=== PATIENT | female | born 1960 | race Caucasian/White ===

== ENCOUNTER 2016-04-11 10:24 | Inpatient (IN) | payer MEDICAID, OTHER ==
[~2016-04-11] VITALS: Ht 162.6 cm; Wt 45.8 kg
[~2016-04-11 10:24] MED LIST: ALBU2.5V13 NEB; ASPI81TA2 PO; Ipratropium Bromide NEB; LEVO750T21 PO
[2016-04-11] MEDS ORDERED: ONDANSETRON HCL/PF 4 MG/2 ML VIAL ONE (10:46)
[2016-04-11] MEDS ORDERED: IV NS 0.9% 1,000 ML ONE (10:46)
[2016-04-11] MEDS ORDERED: IV SET PRIMARY PUMP SET 1 EA INFUS.SET MC ONE ×3 (10:46→20:14)
[2016-04-11] MEDS ORDERED: FAMOTIDINE/PF INJ 20 MG/2 ML VIAL IV ONE ×2 (10:46→11:00)
[2016-04-11] MEDS ORDERED: HYDROMORPHONE 1 MG/1 ML DISP.SYRIN ONE (10:47)
[2016-04-11 10:50] LABS: BASOPHILS # (AUTO) 0.2 /CMM (0.0-0.2); BASOPHILS % (AUTO) 1.4 % (0.0-2.0); DIFF TOTAL % 100 %; EOSINOPHILS # (AUTO) 0.2 /CMM (0.0-0.7); EOSINOPHILS % (AUTO) 0.9 % (0.0-6.0); HEMATOCRIT 30 % (33-45); HEMOGLOBIN 9.7 g/dL (11.5-14.8); LYMPHOCYTES # (AUTO) 1.2 /CMM (0.8-4.8); MEAN CORPUSCULAR HEMOGLOBIN 25 PG (26.0-33.0); MEAN CORPUSCULAR HGB CONC 32 g/dl (31.0-36.0); MEAN CORPUSCULAR VOLUME 76 fL (82-100); MONOCYTES # (AUTO) 1.3 /CMM (0.1-1.30); MONOCYTES % (AUTO) 7.5 % (2.0-12.0); NEUTROPHILS % (AUTO) 83.2 % (43.0-81.0); PLATELET COUNT (AUTO) 627 /CMM (150-450); RED BLOOD CELL COUNT(AUTO) 3.96 MIL/uL (4.0-5.2); WHITE BLOOD COUNT (AUTO) 16.9 K/uL (4.3-11.0)
[2016-04-11 10:57] LABS: CALCIUM, SERUM 8.3 mg/dL (8.5-10.1); CREATININE 0.7 mg/dL (0.6-1.3); POTASSIUM 3.7 mmol/L (3.5-5.1)
[2016-04-11] MEDS ORDERED: HYDROMORPHONE 1 MG/1 ML DISP.SYRIN IV ONE (11:00)
[2016-04-11] MEDS ORDERED: ONDANSETRON HCL/PF 4 MG/2 ML VIAL IV ONE (11:00)
[2016-04-11] MEDS ORDERED: IV NS 0.9% 1,000 ML BAG IV ONE ×2 (11:00→12:30)
[2016-04-11 11:03] LABS: ALBUMIN 1.9 g/dL (3.4-5.0); BILIRUBIN,DIRECT 0.2 mg/dL (0.0-0.2); BILIRUBIN,TOTAL 0.5 mg/dL (0.2-1.0); INDIRECT BILIRUBIN 0.3 mg/dL (0.0-1.1); TOTAL PROTEIN, SERUM 6.8 g/dL (6.4-8.2)
[2016-04-11 11:37] LABS: ANISOCYTOSIS 1+; BAND % (MANUAL) 2 % (0.0-5.0); EOSINOPHILS % (MANUAL) 1 % (0-4); LYMPHOCYTES % (MANUAL) 7 % (16-48); PLATELET ESTIMATE INCREASED
[2016-04-11 11:38] LABS: HYPOCHROMASIA 1+; MICROCYTOSIS 1+
[2016-04-11] MEDS ORDERED: IV NS 0.9% 2,000 ML ONE (12:23)
[2016-04-11] MEDS ORDERED: IV SET PRIMARY 1 EA INFUS.SET MC ONE (12:23)
[2016-04-11 12:28] LABS: KETONES,URINE 15 (NEGATIVE); LEUKOCYTE ESTERASE ,URINE Negative (NEGATIVE); PH,URINE 5.5 (5.0-8.0)
[2016-04-11 12:29] LABS: ADD UA MICROSCOPIC YES
[2016-04-11] MEDS ORDERED: VANCOMYCIN 1 GM in IV D5W 250 ML IV ONE (12:30)
[2016-04-11] MEDS ORDERED: PIPERACILLIN /TAZOBACTAM 3.375 G in IV D5W 50 ML IV ONE (12:30)
[2016-04-11 12:38] LABS: ADD URINE CULTURE NO; WBC,URINE NONE SEEN /HPF (0-3)
[2016-04-11] MEDS ORDERED: HYDR-552 PO (12:50)
[2016-04-11 13:05] LABS: INR 1.1 (0.87-1.13); PROTHROMBIN TIME 11.6 SECS (9.5-12.7)
[2016-04-11 13:15] LABS: ALANINE AMINOTRANSFERASE 61 U/L (12-78); ALBUMIN 1.7 g/dL (3.4-5.0); ASPARTATE AMINOTRANSFERASE 67 U/L (15-37); BILIRUBIN,DIRECT 0.1 mg/dL (0.0-0.2); BILIRUBIN,TOTAL 0.4 mg/dL (0.2-1.0); INDIRECT BILIRUBIN 0.3 mg/dL (0.0-1.1); TOTAL PROTEIN, SERUM 6.3 g/dL (6.4-8.2)
[2016-04-11 13:18] LABS: LACTIC ACID 1.1 mmol/L (0.4-2.0)
[2016-04-11 13:20] LABS: TROPONIN I < 0.017 ng/mL (0.00-0.056)
[2016-04-11 14:10] VITALS: BP 88/55
[2016-04-11] MEDS ORDERED: ALBUTEROL FS 2.5 MG/0.5 ML VIAL.NEB NEB PRN (15:00)
[2016-04-11] MEDS ORDERED: Z GUARD REMEDY 2 OZ OINT TP PRN (15:30)
[2016-04-11] MEDS ORDERED: ACETAMINOPHEN 325 MG TABLET PO PRN (15:30)
[2016-04-11] MEDS ORDERED: MAGNESIUM HYDROXIDE 30 ML UDC PO PRN (15:30)
[2016-04-11] MEDS ORDERED: MAG HYDROX/AL HYDROX/SIMETH 30 ML UDC PO PRN (15:30)
[2016-04-11] MEDS ORDERED: ZOLPIDEM TARTRATE 5 MG TABLET PO PRN (15:30)
[2016-04-11] MEDS ORDERED: HYDROCODONE/APAP 5/325MG 1 EACH TABLET PO PRN (15:30)
[2016-04-11 16:00] VITALS: BP_SYST 88; BP_SYST 99; BP_DIAS 55; BP_DIAS 58
[2016-04-11] MEDS: IPRATROPIUM NEB FS 0.5 MG/2.5 ML AMPUL.NEB NEB SCH ×2 (16:20→19:46)
[2016-04-11] MEDS: PANTOPRAZOLE 40 MG TABLET.DR PO SCH (16:32)
[2016-04-11] MEDS: ASPIRIN 81 MG TAB.CHEW PO SCH (16:32)
[2016-04-11] MEDS: HYDROCODONE/APAP 5/325MG 1 EACH TABLET PO PRN (17:31)
[2016-04-11 20:00] VITALS: BP 94/50
[2016-04-11] MEDS: IV D5/0.45 NACL 1,000 ML IV PRN (20:38)
[2016-04-11] MEDS: ENOXAPARIN SODIUM 40 MG/0.4 ML DISP.SYRIN SQ SCH (20:48)
[2016-04-12] MEDS: IPRATROPIUM NEB FS 0.5 MG/2.5 ML AMPUL.NEB NEB SCH ×4 (01:16→20:03)
[2016-04-12] MEDS: HYDROCODONE/APAP 5/325MG 1 EACH TABLET PO PRN ×5 (01:20→22:23)
[2016-04-12 07:07] LABS: ALBUMIN 1.6 g/dL (3.4-5.0); BILIRUBIN,TOTAL 0.3 mg/dL (0.2-1.0); CALCIUM, SERUM 8.1 mg/dL (8.5-10.1); CREATININE 0.6 mg/dL (0.6-1.3); PHOSPHORUS 3.3 mg/dL (2.5-4.9); POTASSIUM 3.9 mmol/L (3.5-5.1); TOTAL PROTEIN, SERUM 5.8 g/dL (6.4-8.2)
[2016-04-12 07:12] LABS: BASOPHILS # (AUTO) 0.1 /CMM (0.0-0.2); BASOPHILS % (AUTO) 0.5 % (0.0-2.0); DIFF TOTAL % 100 %; EOSINOPHILS # (AUTO) 0.1 /CMM (0.0-0.7); EOSINOPHILS % (AUTO) 0.7 % (0.0-6.0); HEMATOCRIT 26 % (33-45); HEMOGLOBIN 8.4 g/dL (11.5-14.8); LYMPHOCYTES # (AUTO) 1.6 /CMM (0.8-4.8); LYMPHOCYTES % (AUTO) 11.1 % (20.0-44.0); MEAN CORPUSCULAR HEMOGLOBIN 25 PG (26.0-33.0); MEAN CORPUSCULAR HGB CONC 32 g/dl (31.0-36.0); MEAN CORPUSCULAR VOLUME 76 fL (82-100); MONOCYTES # (AUTO) 1.4 /CMM (0.1-1.30); MONOCYTES % (AUTO) 9.2 % (2.0-12.0); NEUTROPHILS # (AUTO) 11.7 /CMM (1.8-8.9); NEUTROPHILS % (AUTO) 78.5 % (43.0-81.0); PLATELET COUNT (AUTO) 593 /CMM (150-450); RED BLOOD CELL COUNT(AUTO) 3.43 MIL/uL (4.0-5.2); WHITE BLOOD COUNT (AUTO) 14.9 K/uL (4.3-11.0)
[2016-04-12 08:00] VITALS: BP 95/50
[2016-04-12] MEDS: ASPIRIN 81 MG TAB.CHEW PO SCH (08:22)
[2016-04-12] MEDS: PANTOPRAZOLE 40 MG TABLET.DR PO SCH (08:22)
[2016-04-12] MEDS ORDERED: PIPERACILLIN /TAZOBACTAM 4.5 G in IV D5W 50 ML IV SCH (09:00)
[2016-04-12] MEDS ORDERED: FEE PK DOSING 1 MIN EA MC ONE (09:12)
[2016-04-12] MEDS ORDERED: SECONDARY IV SET 1 EA INFUS.SET MC ONE ×3 (10:41→13:58)
[2016-04-12] MEDS: VANCOMYCIN 0.75 GM in IV D5W 250 ML IV SCH ×2 (10:50→22:27)
[2016-04-12] MEDS: PIPERACILLIN /TAZOBACTAM 3.375 G in IV D5W 50 ML IV SCH ×2 (13:29→17:00)
[2016-04-12] MEDS: SOD FERRIC GLUC 125 MG in IV NS 0.9% 100 ML IV SCH (14:03)
[2016-04-12 16:00] VITALS: BP 90/50
[2016-04-12] MEDS: IV D5/0.45 NACL 1,000 ML IV PRN (18:11)
[2016-04-12 20:00] VITALS: BP_SYST 110; BP_SYST 91; BP_DIAS 51; BP_DIAS 83
[2016-04-12] MEDS: ENOXAPARIN SODIUM 40 MG/0.4 ML DISP.SYRIN SQ SCH (21:00)
[2016-04-13] MEDS: PIPERACILLIN /TAZOBACTAM 3.375 G in IV D5W 50 ML IV SCH ×4 (01:02→18:26)
[2016-04-13] MEDS: IPRATROPIUM NEB FS 0.5 MG/2.5 ML AMPUL.NEB NEB SCH ×4 (01:40→19:40)
[2016-04-13] MEDS: MORPHINE SULFATE INJ 2 MG/ML DISP.SYRIN IV PRN ×2 (02:23→06:41)
[2016-04-13 04:00] VITALS: BP 115/73
[2016-04-13] MEDS: IV D5/0.45 NACL 1,000 ML IV PRN (05:50)
[2016-04-13] MEDS: PANTOPRAZOLE 40 MG TABLET.DR PO SCH (07:30)
[2016-04-13 08:00] VITALS: BP 101/54
[2016-04-13] MEDS: ASPIRIN 81 MG TAB.CHEW PO SCH (08:18)
[2016-04-13] MEDS ORDERED: KETOROLAC TROMETHAMINE INJ 30 MG/ML VIAL IM PRN (09:00)
[2016-04-13] MEDS: KETOROLAC TROMETHAMINE INJ 30 MG/ML VIAL IV PRN ×2 (09:16→20:31)
[2016-04-13] MEDS: ONDANSETRON HCL/PF 4 MG/2 ML VIAL IVP PRN ×2 (09:17→16:34)
[2016-04-13 10:36] LABS: CALCIUM, SERUM 8.1 mg/dL (8.5-10.1)
[2016-04-13] MEDS ORDERED: POTASSIUM CHLORIDE 20 MEQ TAB.PRT.SR PO ONE (12:00)
[2016-04-13] MEDS: VANCOMYCIN 0.75 GM in IV D5W 250 ML IV SCH ×2 (12:03→21:24)
[2016-04-13 15:22] LABS: APPEARANCE,UNSPUN,BODY FLUID CLEAR (CLEAR)
[2016-04-13 15:23] LABS: COLOR,BODY FLUID YELLOW (LT YELLOW); RBC, BODY FLUID 4000 /cu. mm. (0-2000); WBC, BODY FLUID 1130 /cu. mm. (0-200)
[2016-04-13 16:00] VITALS: BP 85/46
[2016-04-13] MEDS: SOD FERRIC GLUC 125 MG in IV NS 0.9% 100 ML IV SCH (16:20)
[2016-04-13 16:57] LABS: POLYNUCLEAR, BODY FLUID 48 % (0-25)
[2016-04-13 20:00] VITALS: BP 92/56
[2016-04-13] MEDS: ENOXAPARIN SODIUM 40 MG/0.4 ML DISP.SYRIN SQ SCH (21:25)
[2016-04-13] MEDS ORDERED: ENOXAPARIN SODIUM 30 MG/0.3 ML DISP.SYRIN ONE (23:48)
[2016-04-14] MEDS: PIPERACILLIN /TAZOBACTAM 3.375 G in IV D5W 50 ML IV SCH ×3 (00:16→12:25)
[2016-04-14] MEDS: IPRATROPIUM NEB FS 0.5 MG/2.5 ML AMPUL.NEB NEB SCH ×3 (01:35→14:04)
[2016-04-14] MEDS: IV D5/0.45 NACL 1,000 ML IV PRN (06:05)
[2016-04-14 06:48] LABS: CALCIUM, SERUM 7.7 mg/dL (8.5-10.1); CREATININE 1.3 mg/dL (0.6-1.3); POTASSIUM 2.9 mmol/L (3.5-5.1)
[2016-04-14] MEDS: KETOROLAC TROMETHAMINE INJ 30 MG/ML VIAL IV PRN (07:43)
[2016-04-14 08:00] VITALS: BP 102/56
[2016-04-14] MEDS: ASPIRIN 81 MG TAB.CHEW PO SCH (08:59)
[2016-04-14] MEDS: PANTOPRAZOLE 40 MG TABLET.DR PO SCH (08:59)
[2016-04-14] MEDS: VANCOMYCIN 0.75 GM in IV D5W 250 ML IV SCH (09:57)
[2016-04-14] MEDS ORDERED: POTASSIUM CHLORIDE 20 MEQ TAB.PRT.SR PO ONE (10:00)
[2016-04-14] MEDS: ONDANSETRON HCL/PF 4 MG/2 ML VIAL IVP PRN (12:33)
[2016-04-14] MEDS: HYDROCODONE/APAP 5/325MG 1 EACH TABLET PO PRN (12:34)
[2016-04-14] MEDS: SOD FERRIC GLUC 125 MG in IV NS 0.9% 100 ML IV SCH (14:00)
[2016-04-14 15:37] VITALS: BP 108/58
[2016-04-14] MEDS ORDERED: VANCOMYCIN 500 MG in IV D5W 100 ML IV SCH (22:00)
== END 2016-04-14 15:30 | disposition home or self-care (01) | DRG 137 ==
LOC: ER 10:25 → MED 12:49
PROVIDERS: ADMIT Internal Medicine; ATTEND Internal Medicine
DX: J15.6 Pneumonia due to other Gram-negative bacteria (principal); J96.01 Acute respiratory failure with hypoxia; E43 Unspecified severe protein-calorie malnutrition; C74.90 Malignant neoplasm of unspecified part of unspecified adrenal gland; C34.90 Malignant neoplasm of unspecified part of unspecified bronchus or lung; J90 Pleural effusion, not elsewhere classified; E86.0 Dehydration; E87.1 Hypo-osmolality and hyponatremia; D50.9 Iron deficiency anemia, unspecified; Z72.0 Tobacco use; E27.9 Disorder of adrenal gland, unspecified
CPT/HCPCS: 36415; 71010-TC; 76942-TC; 80048-TC; 80053-TC; 80061-TC; 80076-TC; 80202-TC; 81000-TC; 83605-TC; 83690-TC; 83735-TC; 84100-TC; 84484-TC; 85025-TC; 85730-TC; 87040-TC; 87070-TC; 87081-TC; 88305-TC; 88312-TC; 88342; 89051-TC; 93970-TC; 94799-TC; A4606; J1170; J1650; J1885; J2270; J2405; J2543; J2916; J3370; J3490; J7030; J7060; Z7610

== ENCOUNTER 2016-04-19 02:07 | Inpatient (IN) | payer MEDICAID ==
[~2016-04-19] VITALS: Ht 162.6 cm; Wt 51.7 kg
[2016-04-19] VITALS (12 sets, daily range): BP systolic 94–119; BP diastolic 42–67
[~2016-04-19 02:07] MED LIST changes: +HYDR-552 PO
[2016-04-19] MEDS ORDERED: IV SET PRIMARY 1 EA INFUS.SET MC ONE (02:24)
[2016-04-19] MEDS ORDERED: MORPHINE SULFATE INJ 2 MG/ML DISP.SYRIN ONE ×2 (02:24→03:12)
[2016-04-19] MEDS ORDERED: IV NS 0.9% 1,000 ML ONE (02:24)
[2016-04-19] MEDS ORDERED: ONDANSETRON HCL/PF 4 MG/2 ML VIAL ONE (02:25)
[2016-04-19] MEDS ORDERED: MORPHINE SULFATE INJ 2 MG/ML DISP.SYRIN IV ONE ×2 (02:30→03:30)
[2016-04-19] MEDS ORDERED: ONDANSETRON HCL/PF 4 MG/2 ML VIAL IVP ONE (02:30)
[2016-04-19] MEDS ORDERED: IV NS 0.9% 1,000 ML BAG IV ONE (02:30)
[2016-04-19 02:45] LABS: BASOPHILS # (AUTO) 0.1 /CMM (0.0-0.2); BASOPHILS % (AUTO) 0.3 % (0.0-2.0); DIFF TOTAL % 100 %; EOSINOPHILS # (AUTO) 0.2 /CMM (0.0-0.7); EOSINOPHILS % (AUTO) 0.7 % (0.0-6.0); HEMATOCRIT 31 % (33-45); HEMOGLOBIN 9.8 g/dL (11.5-14.8); LYMPHOCYTES # (AUTO) 1.8 /CMM (0.8-4.8); LYMPHOCYTES % (AUTO) 7.5 % (20.0-44.0); MEAN CORPUSCULAR HEMOGLOBIN 24 PG (26.0-33.0); MEAN CORPUSCULAR HGB CONC 32 g/dl (31.0-36.0); MEAN CORPUSCULAR VOLUME 76 fL (82-100); MONOCYTES # (AUTO) 1.3 /CMM (0.1-1.30); MONOCYTES % (AUTO) 5.4 % (2.0-12.0); NEUTROPHILS # (AUTO) 20.8 /CMM (1.8-8.9); NEUTROPHILS % (AUTO) 86.1 % (43.0-81.0); PLATELET COUNT (AUTO) 620 /CMM (150-450); RED BLOOD CELL COUNT(AUTO) 4.08 MIL/uL (4.0-5.2); WHITE BLOOD COUNT (AUTO) 24.2 K/uL (4.3-11.0)
[2016-04-19 03:05] LABS: ANION GAP 17 (5-14); CALCIUM, SERUM 8.8 mg/dL (8.5-10.1); CARBON DIOXIDE 24 mmol/L (21-32); CHLORIDE 93 mmol/L (98-107); CREATININE 1.3 mg/dL (0.6-1.3); GFR 42 mL/min (>60); GLUCOSE 122 mg/dL (74-106); POTASSIUM 3.8 mmol/L (3.5-5.1); SODIUM SERUM 130 mmol/L (136-145); UREA NITROGEN, BLOOD 9 mg/dL (7-18)
[2016-04-19 03:06] LABS: INR 1.07 (0.87-1.13); PROTHROMBIN TIME 11.6 SECS (9.5-12.7)
[2016-04-19 03:11] LABS: ALANINE AMINOTRANSFERASE 32 U/L (12-78); ASPARTATE AMINOTRANSFERASE 39 U/L (15-37); BILIRUBIN,DIRECT 0.2 mg/dL (0.0-0.2); BILIRUBIN,TOTAL 0.6 mg/dL (0.2-1.0); INDIRECT BILIRUBIN 0.4 mg/dL (0.0-1.1); TOTAL PROTEIN, SERUM 7.7 g/dL (6.4-8.2)
[2016-04-19 03:13] LABS: TROPONIN I < 0.017 ng/mL (0.00-0.056)
[2016-04-19] MEDS ORDERED: HYDR-552 PO (03:21)
[2016-04-19] MEDS ORDERED: DOCU-25 PO (03:21)
[2016-04-19] MEDS ORDERED: LACT10SO PO (03:21)
[2016-04-19] MEDS ORDERED: FERR-58 PO (03:21)
[2016-04-19] MEDS ORDERED: ALBU2.5V12 NEB (03:27)
[2016-04-19] MEDS ORDERED: GUAI118S13 PO (03:27)
[2016-04-19] MEDS ORDERED: IPRA0.2S49 NEB (03:27)
[2016-04-19 03:47] LABS: LACTIC ACID 2.7 mmol/L (0.4-2.0)
[2016-04-19] MEDS ORDERED: IV NS 0.9% 250 ML IV ONE (04:19)
[2016-04-19] MEDS ORDERED: CT SWABBABLE VALVE TRANS SET 1 EA INFUS.SET MC ONE (04:20)
[2016-04-19] MEDS ORDERED: IOHEXOL-350 100 ML VIAL IV ONE (04:20)
[2016-04-19 04:21] LABS: *LACTIC ACID REFLEX FLAG YES
[2016-04-19] MEDS ORDERED: ENOXAPARIN SODIUM 60 MG/0.6 ML DISP.SYRIN SQ ONE (04:43)
[2016-04-19] MEDS ORDERED: MAGNESIUM HYDROXIDE 30 ML UDC PO PRN ×2 (05:30→06:15)
[2016-04-19] MEDS ORDERED: ZOLPIDEM TARTRATE 5 MG TABLET PO PRN ×2 (05:30→06:15)
[2016-04-19] MEDS ORDERED: ACETAMINOPHEN 325 MG TABLET PO PRN ×2 (05:30→06:15)
[2016-04-19] MEDS ORDERED: MAG HYDROX/AL HYDROX/SIMETH 30 ML UDC PO PRN ×2 (05:30→06:15)
[2016-04-19] MEDS ORDERED: HYDROCODONE/APAP 5/325MG 1 EACH TABLET PO PRN (05:30)
[2016-04-19] MEDS ORDERED: ONDANSETRON HCL/PF 4 MG/2 ML VIAL IVP PRN (05:30)
[2016-04-19] MEDS ORDERED: Z GUARD REMEDY 2 OZ OINT TP PRN ×2 (05:30→06:15)
[2016-04-19] MEDS ORDERED: ALBUTEROL FS 2.5 MG/0.5 ML VIAL.NEB NEB PRN ×2 (06:00→06:15)
[2016-04-19] MEDS ORDERED: IPRATROPIUM NEB FS 0.5 MG/2.5 ML AMPUL.NEB NEB SCH ×2 (06:00→13:30)
[2016-04-19] MEDS ORDERED: IPRATROPIUM BROMIDE NEB PRN (06:00)
[2016-04-19] MEDS ORDERED: HYDROCODONE/APAP 5/325MG 1 EACH TABLET ONE (06:40)
[2016-04-19] MEDS: HYDROCODONE/APAP 5/325MG 1 EACH TABLET PO PRN ×2 (06:53→20:03)
[2016-04-19] MEDS: DOCUSATE SODIUM 100 MG CAPSULE PO SCH ×2 (08:54→17:00)
[2016-04-19] MEDS: FERROUS SULFATE (325 MG) 325 MG/TAB TABLET PO SCH ×2 (08:54→17:32)
[2016-04-19] MEDS ORDERED: ALBUTEROL FS 2.5 MG/0.5 ML VIAL.NEB NEB SCH (09:00)
[2016-04-19] MEDS ORDERED: FERROUS SULFATE (325 MG) 325 MG/TAB TABLET PO SCH (09:00)
[2016-04-19] MEDS ORDERED: LEVOFLOXACIN (750 MG) 750 MG TABLET PO SCH (09:00)
[2016-04-19] MEDS ORDERED: ASPIRIN 81 MG TAB.CHEW PO SCH ×2 (09:00)
[2016-04-19] MEDS ORDERED: DOCUSATE SODIUM 100 MG CAPSULE PO SCH (09:00)
[2016-04-19] MEDS ORDERED: GUAIFENESIN/CODEINE 10 ML UDC PO PRN (09:30)
[2016-04-19] MEDS: LEVOFLOXACIN (750 MG) 750 MG TABLET PO SCH (10:49)
[2016-04-19] MEDS: ALBUTEROL FS 2.5 MG/0.5 ML VIAL.NEB NEB SCH ×3 (11:30→23:30)
[2016-04-19] MEDS: LACTOBACILLUS RHAMNOSUS GG 1 EACH CAP.SPRINK PO SCH ×2 (12:53→17:32)
[2016-04-19] MEDS ORDERED: IV SET PRIMARY PUMP SET 1 EA INFUS.SET MC ONE (13:11)
[2016-04-19] MEDS: IV NS 0.9% 1,000 ML IV PRN ×2 (13:18→21:24)
[2016-04-19] MEDS: IPRATROPIUM NEB FS 0.5 MG/2.5 ML AMPUL.NEB NEB SCH ×2 (13:30→19:56)
[2016-04-19] MEDS ORDERED: ENOXAPARIN SODIUM 60 MG/0.6 ML DISP.SYRIN SQ SCH (17:00)
[2016-04-19 17:19] LABS: KETONES,URINE NEGATIVE (NEGATIVE); LEUKOCYTE ESTERASE ,URINE NEGATIVE (NEGATIVE); PH,URINE 5.5 (5.0-8.0)
[2016-04-19 17:42] LABS: ADD UA MICROSCOPIC YES
[2016-04-19 17:43] LABS: ADD URINE CULTURE NO; RBC,URINE 0-2 /HPF (0-2); WBC,URINE 0-2 /HPF (0-3)
[2016-04-19] MEDS: ONDANSETRON HCL/PF 4 MG/2 ML VIAL IVP PRN (20:10)
[2016-04-20] VITALS (45 sets, daily range): BP systolic 95–118; BP diastolic 41–93
[2016-04-20] MEDS: IPRATROPIUM NEB FS 0.5 MG/2.5 ML AMPUL.NEB NEB SCH ×6 (01:30→23:30)
[2016-04-20] MEDS: HYDROCODONE/APAP 5/325MG 1 EACH TABLET PO PRN (02:36)
[2016-04-20] MEDS: ONDANSETRON HCL/PF 4 MG/2 ML VIAL IVP PRN (02:37)
[2016-04-20] MEDS: ALBUTEROL FS 2.5 MG/0.5 ML VIAL.NEB NEB SCH ×6 (03:30→23:30)
[2016-04-20 04:43] LABS: BASOPHILS % (AUTO) 0.2 % (0.0-2.0); DIFF TOTAL % 100 %; EOSINOPHILS # (AUTO) 0.3 /CMM (0.0-0.7); EOSINOPHILS % (AUTO) 1.2 % (0.0-6.0); HEMATOCRIT 24 % (33-45); HEMOGLOBIN 7.7 g/dL (11.5-14.8); LYMPHOCYTES # (AUTO) 1.1 /CMM (0.8-4.8); LYMPHOCYTES % (AUTO) 4.9 % (20.0-44.0); MEAN CORPUSCULAR HEMOGLOBIN 25 PG (26.0-33.0); MEAN CORPUSCULAR HGB CONC 33 g/dl (31.0-36.0); MEAN CORPUSCULAR VOLUME 76 fL (82-100); MONOCYTES # (AUTO) 1.5 /CMM (0.1-1.30); MONOCYTES % (AUTO) 6.7 % (2.0-12.0); NEUTROPHILS # (AUTO) 18.8 /CMM (1.8-8.9); PLATELET COUNT (AUTO) 458 /CMM (150-450); RED BLOOD CELL COUNT(AUTO) 3.12 MIL/uL (4.0-5.2); WHITE BLOOD COUNT (AUTO) 21.6 K/uL (4.3-11.0)
[2016-04-20] MEDS ORDERED: MORPHINE SULFATE INJ 2 MG/ML DISP.SYRIN ONE (04:47)
[2016-04-20] MEDS: MORPHINE SULFATE INJ 2 MG/ML DISP.SYRIN IV PRN ×3 (04:54→20:19)
[2016-04-20 04:58] LABS: CALCIUM, SERUM 7.8 mg/dL (8.5-10.1); CREATININE 1.1 mg/dL (0.6-1.3); POTASSIUM 3.9 mmol/L (3.5-5.1)
[2016-04-20 05:18] LABS: INR 1.11 (0.87-1.13)
[2016-04-20 05:53] LABS: ANISOCYTOSIS 1+; HYPOCHROMASIA 2+; PLATELET ESTIMATE INCREASED
[2016-04-20] MEDS: LACTOBACILLUS RHAMNOSUS GG 1 EACH CAP.SPRINK PO SCH ×3 (07:41→17:00)
[2016-04-20] MEDS: DOCUSATE SODIUM 100 MG CAPSULE PO SCH ×2 (07:41→17:00)
[2016-04-20] MEDS: IV NS 0.9% 1,000 ML IV PRN (09:23)
[2016-04-20] MEDS ORDERED: BLOOD IV SET 1 EA INFUS.SET MC ONE (11:23)
[2016-04-20] MEDS ORDERED: IV NS 0.9% 250 ML IV ONE (11:23)
[2016-04-20] MEDS ORDERED: LIDOCAINE HCL/PF 1% 30 ML SDV ONE (14:00)
[2016-04-20] MEDS ORDERED: HEPARIN SODIUM, PORCINE 1,000 UNIT/ML VIAL ONE (14:00)
[2016-04-20] MEDS ORDERED: IOHEXOL 240MG/ML 50 ML IV ONE (15:38)
[2016-04-20] MEDS ORDERED: FENTANYL PF 100MCG/2ML AMPUL ONE (16:23)
[2016-04-20] MEDS ORDERED: SECONDARY IV SET 1 EA INFUS.SET MC ONE (18:29)
[2016-04-20] MEDS: SOD FERRIC GLUC 125 MG in IV NS 0.9% 100 ML IV SCH (18:34)
[2016-04-21] VITALS (16 sets, daily range): BP systolic 107–126; BP diastolic 58–70
[2016-04-21] MEDS: MORPHINE SULFATE INJ 2 MG/ML DISP.SYRIN IV PRN ×3 (00:26→08:33)
[2016-04-21] MEDS: ANCEF 1 GM/50 ML D5W IV SCH ×4 (00:27→08:33)
[2016-04-21] MEDS: IV NS 0.9% 1,000 ML IV PRN (01:20)
[2016-04-21] MEDS: ALBUTEROL FS 2.5 MG/0.5 ML VIAL.NEB NEB SCH ×4 (03:30→14:40)
[2016-04-21] MEDS: IPRATROPIUM NEB FS 0.5 MG/2.5 ML AMPUL.NEB NEB SCH ×4 (03:30→14:40)
[2016-04-21 04:51] LABS: BASOPHILS % (AUTO) 0.2 % (0.0-2.0); DIFF TOTAL % 100 %; EOSINOPHILS # (AUTO) 0.1 /CMM (0.0-0.7); EOSINOPHILS % (AUTO) 0.3 % (0.0-6.0); HEMATOCRIT 29 % (33-45); HEMOGLOBIN 9.3 g/dL (11.5-14.8); LYMPHOCYTES # (AUTO) 1.1 /CMM (0.8-4.8); LYMPHOCYTES % (AUTO) 4.8 % (20.0-44.0); MEAN CORPUSCULAR HEMOGLOBIN 25 PG (26.0-33.0); MEAN CORPUSCULAR HGB CONC 32 g/dl (31.0-36.0); MEAN CORPUSCULAR VOLUME 77 fL (82-100); MONOCYTES # (AUTO) 1.5 /CMM (0.1-1.30); MONOCYTES % (AUTO) 6.9 % (2.0-12.0); NEUTROPHILS # (AUTO) 19.5 /CMM (1.8-8.9); NEUTROPHILS % (AUTO) 87.8 % (43.0-81.0); PLATELET COUNT (AUTO) 553 /CMM (150-450); RED BLOOD CELL COUNT(AUTO) 3.71 MIL/uL (4.0-5.2); WHITE BLOOD COUNT (AUTO) 22.2 K/uL (4.3-11.0)
[2016-04-21] MEDS: LACTOBACILLUS RHAMNOSUS GG 1 EACH CAP.SPRINK PO SCH ×2 (08:33→12:01)
[2016-04-21] MEDS: DOCUSATE SODIUM 100 MG CAPSULE PO SCH (09:00)
[2016-04-21] MEDS: LEVOFLOXACIN (750 MG) 750 MG TABLET PO SCH (09:13)
[2016-04-21] MEDS ORDERED: DOCU-25 PO (10:44)
[2016-04-21] MEDS ORDERED: LACT1CAP69 PO (10:45)
[2016-04-21] MEDS ORDERED: MORPHINE SULFATE INJ 2 MG/ML DISP.SYRIN IV PRN (13:00)
[2016-04-21] MEDS: SOD FERRIC GLUC 125 MG in IV NS 0.9% 100 ML IV SCH (14:21)
== END 2016-04-21 16:16 | disposition home or self-care (01) | DRG 134 ==
LOC: ER 02:16 → TELE1 06:18 → ICU 21:03
PROVIDERS: ADMIT Family Medicine; ATTEND Student in an Organized Health Care Education/Training Program
PROC: B518YZA Fluoroscopy of Superior Vena Cava using Other Contrast, Guidance (ICD-10-PCS; principal; 2016-04-20 16:50)
PROC: 02HV33Z Insertion of Infusion Device into Superior Vena Cava, Percutaneous Approach (ICD-10-PCS; principal; 2016-04-20 16:50)
PROC: 30233N1 Transfusion of Nonautologous Red Blood Cells into Peripheral Vein, Percutaneous Approach (ICD-10-PCS; principal; 2016-04-20 16:50)
PROC: 06H03DZ Insertion of Intraluminal Device into Inferior Vena Cava, Percutaneous Approach (ICD-10-PCS; principal; 2016-04-20 16:50)
DX: I26.99 Other pulmonary embolism without acute cor pulmonale (principal); N17.0 Acute kidney failure with tubular necrosis; E43 Unspecified severe protein-calorie malnutrition; J18.9 Pneumonia, unspecified organism; J90 Pleural effusion, not elsewhere classified; D68.59 Other primary thrombophilia; C34.90 Malignant neoplasm of unspecified part of unspecified bronchus or lung; I82.412 Acute embolism and thrombosis of left femoral vein; C74.90 Malignant neoplasm of unspecified part of unspecified adrenal gland; J98.11 Atelectasis; E87.1 Hypo-osmolality and hyponatremia; E87.8 Other disorders of electrolyte and fluid balance, not elsewhere classified; R73.9 Hyperglycemia, unspecified; R04.2 Hemoptysis; D50.9 Iron deficiency anemia, unspecified; E78.1 Pure hyperglyceridemia; E86.0 Dehydration; F17.210 Nicotine dependence, cigarettes, uncomplicated; Z68.1 Body mass index [BMI] 19.9 or less, adult
CPT/HCPCS: 36415; 71010-TC; 74000-TC; 80048-TC; 80076-TC; 81000-TC; 83605-TC; 83735-TC; 84484-TC; 85025-TC; 85610-TC; 85730-TC; 86850-TC; 86901; 86921-TC; 87040-TC; 87081-TC; 87086-TC; 93970-TC; A4606; A6402; C1757; C1769; C1880; J0690; J1644; J1650; J2270; J2405; J2916; J3010; J3490; J7030; J7050; J7060; P9016-BL; Q9966; Q9967; Z7610

== ENCOUNTER 2016-04-30 13:32 | Inpatient (IN) | payer MEDICAID ==
[~2016-04-30] VITALS: Ht 162.6 cm; Wt 50.8 kg
[~2016-04-30 13:32] MED LIST changes: +ALBU2.5V12 NEB; -ASPI81TA2 PO; +DOCU-25 PO; +FERR-58 PO; +GUAI118S13 PO; +LACT10SO PO; +LACT1CAP69 PO; -LEVO750T21 PO
[2016-04-30] MEDS ORDERED: IV NS 0.9% 1,000 ML BAG IV ONE (14:30)
[2016-04-30] MEDS ORDERED: ACETAMINOPHEN ES 500 MG TABLET PO ONE (14:30)
[2016-04-30] MEDS ORDERED: ACETAMINOPHEN ES 500 MG TABLET ONE (14:31)
[2016-04-30] MEDS ORDERED: IV NS 0.9% 500 ML IV ONE (14:32)
[2016-04-30] MEDS ORDERED: IV SET PRIMARY 1 EA INFUS.SET MC ONE (14:32)
[2016-04-30] MEDS ORDERED: SECONDARY IV SET 1 EA INFUS.SET MC ONE (14:32)
[2016-04-30] MEDS ORDERED: IV NS 0.9% 1,000 ML ONE (14:32)
[2016-04-30 14:40] LABS: BASOPHILS # (AUTO) 0.1 /CMM (0.0-0.2); BASOPHILS % (AUTO) 0.8 % (0.0-2.0); DIFF TOTAL % 100 %; HEMATOCRIT 25 % (33-45); HEMOGLOBIN 8.3 g/dL (11.5-14.8); LYMPHOCYTES # (AUTO) 0.7 /CMM (0.8-4.8); LYMPHOCYTES % (AUTO) 4.6 % (20.0-44.0); MEAN CORPUSCULAR HEMOGLOBIN 25 PG (26.0-33.0); MEAN CORPUSCULAR HGB CONC 33 g/dl (31.0-36.0); MEAN CORPUSCULAR VOLUME 76 fL (82-100); MONOCYTES % (AUTO) 0.1 % (2.0-12.0); NEUTROPHILS # (AUTO) 15.1 /CMM (1.8-8.9); NEUTROPHILS % (AUTO) 94.5 % (43.0-81.0); PLATELET COUNT (AUTO) 194 /CMM (150-450); RED BLOOD CELL COUNT(AUTO) 3.33 MIL/uL (4.0-5.2); WHITE BLOOD COUNT (AUTO) 15.9 K/uL (4.3-11.0)
[2016-04-30 14:49] LABS: ANION GAP 14 (5-14); CALCIUM, SERUM 8.2 mg/dL (8.5-10.1); CARBON DIOXIDE 27 mmol/L (21-32); CHLORIDE 91 mmol/L (98-107); CREATININE 0.9 mg/dL (0.6-1.3); GFR 65 mL/min (>60); GLUCOSE 105 mg/dL (74-106); POTASSIUM 3.3 mmol/L (3.5-5.1); SODIUM SERUM 129 mmol/L (136-145); UREA NITROGEN, BLOOD 18 mg/dL (7-18)
[2016-04-30 14:52] LABS: INR 1.21 (0.87-1.13); PROTHROMBIN TIME 12.7 SECS (9.5-12.7)
[2016-04-30 14:54] LABS: TROPONIN I < 0.017 ng/mL (0.00-0.056)
[2016-04-30 14:55] LABS: ALANINE AMINOTRANSFERASE 81 U/L (12-78); ALBUMIN 1.5 g/dL (3.4-5.0); ASPARTATE AMINOTRANSFERASE 150 U/L (15-37); BILIRUBIN,DIRECT 0.8 mg/dL (0.0-0.2); BILIRUBIN,TOTAL 1.4 mg/dL (0.2-1.0); INDIRECT BILIRUBIN 0.6 mg/dL (0.0-1.1); TOTAL PROTEIN, SERUM 5.9 g/dL (6.4-8.2)
[2016-04-30 15:16] LABS: LACTIC ACID 1.4 mmol/L (0.4-2.0)
[2016-04-30] MEDS ORDERED: VANCOMYCIN 1 GM in IV D5W 250 ML IV ONE (16:30)
[2016-04-30] MEDS ORDERED: CEFEPIME 1 GM in IV D5W 50 ML IV ONE (16:30)
[2016-04-30] MEDS ORDERED: IV SET PRIMARY PUMP SET 1 EA INFUS.SET MC ONE (16:42)
[2016-04-30] MEDS ORDERED: MAGNESIUM HYDROXIDE 30 ML UDC PO PRN (17:00)
[2016-04-30] MEDS ORDERED: DOCUSATE SODIUM 100 MG CAPSULE PO SCH (17:00)
[2016-04-30] MEDS ORDERED: ALBUTEROL FS 2.5 MG/0.5 ML VIAL.NEB NEB PRN (17:00)
[2016-04-30] MEDS ORDERED: MAG HYDROX/AL HYDROX/SIMETH 30 ML UDC PO PRN (17:00)
[2016-04-30] MEDS ORDERED: ENOXAPARIN SODIUM 40 MG/0.4 ML DISP.SYRIN SQ SCH (17:00)
[2016-04-30] MEDS ORDERED: Z GUARD REMEDY 2 OZ OINT TP PRN (17:00)
[2016-04-30 17:30] VITALS: BP 103/55
[2016-04-30] MEDS: ONDANSETRON HCL/PF 4 MG/2 ML VIAL IVP PRN (17:36)
[2016-04-30] MEDS: IV NS 0.9% 1,000 ML IV PRN (18:27)
[2016-04-30] MEDS: FERROUS SULFATE (325 MG) 325 MG/TAB TABLET PO SCH (18:29)
[2016-04-30] MEDS: LACTOBACILLUS RHAMNOSUS GG 1 EACH CAP.SPRINK PO SCH (18:29)
[2016-04-30] MEDS ORDERED: IV NS 0.9% 1,000 ML IV ONE (19:30)
[2016-04-30] MEDS: ALBUTEROL FS 2.5 MG/0.5 ML VIAL.NEB NEB SCH ×2 (19:30→23:30)
[2016-04-30 20:00] VITALS: BP_SYST 92; BP_SYST 94; BP_DIAS 54
[2016-04-30] MEDS ORDERED: CEFEPIME 1 GM VIAL IV SCH (21:00)
[2016-04-30] MEDS ORDERED: CEFEPIME 1 GM VIAL IM SCH (21:00)
[2016-04-30] MEDS ORDERED: CEFEPIME 1 GM in IV D5W 50 ML IV SCH (21:00)
[2016-04-30] MEDS: LACTULOSE 10 G/15 ML UDC (PYXIS) PO SCH (21:16)
[2016-05-01] VITALS (13 sets, daily range): BP systolic 93–126; BP diastolic 41–67
[2016-05-01] MEDS: ONDANSETRON HCL/PF 4 MG/2 ML VIAL IVP PRN ×3 (02:55→19:56)
[2016-05-01] MEDS: MORPHINE SULFATE INJ 2 MG/ML DISP.SYRIN IV PRN ×3 (02:55→19:56)
[2016-05-01] MEDS: ALBUTEROL FS 2.5 MG/0.5 ML VIAL.NEB NEB SCH ×6 (03:30→23:08)
[2016-05-01] MEDS ORDERED: CEFEPIME 1 GM in IV D5W 50 ML IV SCH ×2 (04:00→09:00)
[2016-05-01] MEDS: IV NS 0.9% 1,000 ML IV PRN ×2 (05:34→21:49)
[2016-05-01] MEDS: ACETAMINOPHEN 325 MG TABLET PO PRN ×2 (05:41→18:27)
[2016-05-01 06:58] LABS: DIFF TOTAL % 100 %; EOSINOPHILS % (AUTO) 0.1 % (0.0-6.0); HEMATOCRIT 23 % (33-45); HEMOGLOBIN 7.7 g/dL (11.5-14.8); LYMPHOCYTES # (AUTO) 0.4 /CMM (0.8-4.8); LYMPHOCYTES % (AUTO) 4.8 % (20.0-44.0); MEAN CORPUSCULAR HEMOGLOBIN 25 PG (26.0-33.0); MEAN CORPUSCULAR HGB CONC 33 g/dl (31.0-36.0); MEAN CORPUSCULAR VOLUME 77 fL (82-100); MONOCYTES % (AUTO) 0.1 % (2.0-12.0); NEUTROPHILS # (AUTO) 7.2 /CMM (1.8-8.9); PLATELET COUNT (AUTO) 123 /CMM (150-450); RED BLOOD CELL COUNT(AUTO) 3.06 MIL/uL (4.0-5.2); WHITE BLOOD COUNT (AUTO) 7.6 K/uL (4.3-11.0)
[2016-05-01 07:48] LABS: CALCIUM, SERUM 7.7 mg/dL (8.5-10.1); CREATININE 0.8 mg/dL (0.6-1.3); PHOSPHORUS 2.4 mg/dL (2.5-4.9); POTASSIUM 2.9 mmol/L (3.5-5.1)
[2016-05-01] MEDS: DOCUSATE SODIUM 100 MG CAPSULE PO SCH ×3 (08:50→17:13)
[2016-05-01] MEDS: FERROUS SULFATE (325 MG) 325 MG/TAB TABLET PO SCH ×2 (08:50→17:13)
[2016-05-01] MEDS: LACTOBACILLUS RHAMNOSUS GG 1 EACH CAP.SPRINK PO SCH ×2 (08:51→17:13)
[2016-05-01] MEDS: PANTOPRAZOLE 40 MG TABLET.DR PO SCH (08:51)
[2016-05-01] MEDS: LACTULOSE 10 G/15 ML UDC (PYXIS) PO SCH (08:52)
[2016-05-01] MEDS ORDERED: CEFEPIME 1 GM VIAL IV SCH (09:00)
[2016-05-01] MEDS: HYDROCODONE/APAP 5/325MG 1 EACH TABLET PO PRN (09:04)
[2016-05-01] MEDS ORDERED: Magnesium 1GM/D5W 100ML PREMIX PIGGYBACK IV ONE (10:30)
[2016-05-01] MEDS ORDERED: IV SET PRIMARY PUMP SET 1 EA INFUS.SET MC ONE (10:30)
[2016-05-01] MEDS ORDERED: SECONDARY IV SET 1 EA INFUS.SET MC ONE ×2 (10:31→15:53)
[2016-05-01] MEDS: POTASSIUM CL. PREMIX PERIPHER. 50 ML IV SCH ×6 (10:41→13:42)
[2016-05-01] MEDS ORDERED: Magnesium 1GM/D5W 100ML PREMIX 100 ML IV SCH (11:30)
[2016-05-01 11:31] LABS: LYMPHOCYTES % (MANUAL) 8 % (16-48)
[2016-05-01 11:32] LABS: HYPOCHROMASIA 1+; MICROCYTOSIS 1+; PLATELET ESTIMATE DECREASED
[2016-05-01] MEDS: IPRATROPIUM NEB FS 0.5 MG/2.5 ML AMPUL.NEB NEB PRN ×2 (12:04→16:11)
[2016-05-01] MEDS: Magnesium 1GM/D5W 100ML PREMIX 100 ML IV SCH ×3 (12:54→14:43)
[2016-05-01] MEDS ORDERED: ENOXAPARIN SODIUM 60 MG/0.6 ML DISP.SYRIN SQ SCH (14:30)
[2016-05-01] MEDS: BOOST PLUS FOOD-CHOCLATE 237 ML BOX PO SCH ×2 (15:43→17:12)
[2016-05-01] MEDS: CEFEPIME 1 GM in IV D5W 50 ML IV SCH (15:59)
[2016-05-01] MEDS ORDERED: K PHOS NEUTRAL 250 MG TABLET PO ONE (17:00)
[2016-05-01] MEDS ORDERED: BLOOD IV SET 1 EA INFUS.SET MC ONE (17:16)
[2016-05-01] MEDS ORDERED: IV NS 0.9% 250 ML IV ONE (17:16)
[2016-05-01] MEDS: ENOXAPARIN SODIUM 60 MG/0.6 ML DISP.SYRIN SQ SCH (21:56)
[2016-05-01] MEDS: ZOLPIDEM TARTRATE 5 MG TABLET PO PRN (22:02)
[2016-05-02] VITALS (8 sets, daily range): BP systolic 99–116; BP diastolic 51–70
[2016-05-02] MEDS: ACETAMINOPHEN 325 MG TABLET PO PRN ×2 (00:14→12:28)
[2016-05-02] MEDS: ONDANSETRON HCL/PF 4 MG/2 ML VIAL IVP PRN ×4 (00:20→23:32)
[2016-05-02] MEDS: ALBUTEROL FS 2.5 MG/0.5 ML VIAL.NEB NEB SCH ×5 (03:46→20:09)
[2016-05-02 08:18] LABS: DIFF TOTAL % 100 %; EOSINOPHILS % (AUTO) 0.3 % (0.0-6.0); HEMATOCRIT 27 % (33-45); HEMOGLOBIN 8.9 g/dL (11.5-14.8); LYMPHOCYTES # (AUTO) 0.6 /CMM (0.8-4.8); MEAN CORPUSCULAR HEMOGLOBIN 26 PG (26.0-33.0); MEAN CORPUSCULAR HGB CONC 33 g/dl (31.0-36.0); MEAN CORPUSCULAR VOLUME 78 fL (82-100); MONOCYTES % (AUTO) 0.4 % (2.0-12.0); NEUTROPHILS # (AUTO) 6.4 /CMM (1.8-8.9); NEUTROPHILS % (AUTO) 91.3 % (43.0-81.0); RED BLOOD CELL COUNT(AUTO) 3.46 MIL/uL (4.0-5.2)
[2016-05-02] MEDS: FERROUS SULFATE (325 MG) 325 MG/TAB TABLET PO SCH ×2 (08:25→16:28)
[2016-05-02] MEDS: LACTULOSE 10 G/15 ML UDC (PYXIS) PO SCH (08:25)
[2016-05-02] MEDS: BOOST PLUS FOOD-CHOCLATE 237 ML BOX PO SCH ×3 (08:26→16:28)
[2016-05-02] MEDS: PANTOPRAZOLE 40 MG TABLET.DR PO SCH (08:26)
[2016-05-02] MEDS: LACTOBACILLUS RHAMNOSUS GG 1 EACH CAP.SPRINK PO SCH ×2 (08:26→16:28)
[2016-05-02] MEDS: DOCUSATE SODIUM 100 MG CAPSULE PO SCH ×2 (08:38→16:42)
[2016-05-02 09:38] LABS: CALCIUM, SERUM 7.8 mg/dL (8.5-10.1); POTASSIUM 3.4 mmol/L (3.5-5.1)
[2016-05-02 09:39] LABS: BILIRUBIN,DIRECT 2.5 mg/dL (0.0-0.2); BILIRUBIN,TOTAL 3.4 mg/dL (0.2-1.0); CREATININE 0.8 mg/dL (0.6-1.3); INDIRECT BILIRUBIN 0.9 mg/dL (0.0-1.1); PHOSPHORUS 3.6 mg/dL (2.5-4.9)
[2016-05-02 09:45] LABS: ALBUMIN 1.4 g/dL (3.4-5.0); TOTAL PROTEIN, SERUM 5.6 g/dL (6.4-8.2)
[2016-05-02] MEDS: IV NS 0.9% 1,000 ML IV PRN ×2 (09:51→22:15)
[2016-05-02 09:52] LABS: EOSINOPHILS % (MANUAL) 1 % (0-4); LYMPHOCYTES % (MANUAL) 7 % (16-48)
[2016-05-02 09:54] LABS: PLATELET COUNT (AUTO) 109 /CMM (150-450)
[2016-05-02] MEDS: MORPHINE SULFATE INJ 2 MG/ML DISP.SYRIN IV PRN ×2 (12:30→20:34)
[2016-05-02] MEDS ORDERED: ALBUMIN 25% 12.5 GM in PREMIX 1 EA IV ONE ×2 (13:00→15:00)
[2016-05-02] MEDS ORDERED: IV SET PRIMARY PUMP SET 1 EA INFUS.SET MC ONE ×2 (14:26→16:19)
[2016-05-02] MEDS ORDERED: ALBUMIN 25% 12.5 GM/50 ML BOTTLE IV ONE (14:30)
[2016-05-02] MEDS: IPRATROPIUM NEB FS 0.5 MG/2.5 ML AMPUL.NEB NEB PRN (14:51)
[2016-05-02] MEDS ORDERED: SECONDARY IV SET 1 EA INFUS.SET MC ONE (15:16)
[2016-05-02] MEDS: SOD FERRIC GLUC 125 MG in IV NS 0.9% 100 ML IV SCH (15:17)
[2016-05-02] MEDS: POTASSIUM CL. PREMIX PERIPHER. 50 ML IV SCH ×2 (16:23→17:45)
[2016-05-02] MEDS: CEFEPIME 1 GM in IV D5W 50 ML IV SCH (16:23)
[2016-05-02 18:41] LABS: KETONES,URINE TRACE (NEGATIVE); LEUKOCYTE ESTERASE ,URINE NEGATIVE (NEGATIVE)
[2016-05-02 18:46] LABS: ADD UA MICROSCOPIC YES
[2016-05-02 18:53] LABS: ADD URINE CULTURE NO; RBC,URINE 0-2 /HPF (0-2)
[2016-05-02] MEDS ORDERED: PROCHLORPERAZINE MALEATE 10 MG TABLET PO PRN (20:00)
[2016-05-02] MEDS ORDERED: LORAZEPAM 1 MG TABLET PO PRN (20:00)
[2016-05-02] MEDS: ENOXAPARIN SODIUM 60 MG/0.6 ML DISP.SYRIN SQ SCH (20:40)
[2016-05-02] MEDS: GUAIFENESIN/CODEINE 10 ML UDC PO PRN (23:30)
[2016-05-02] MEDS: HYDROCODONE/APAP 5/325MG 1 EACH TABLET PO PRN (23:31)
[2016-05-03] MEDS: MORPHINE SULFATE INJ 2 MG/ML DISP.SYRIN IV PRN ×5 (01:06→20:59)
[2016-05-03] MEDS: ALBUTEROL FS 2.5 MG/0.5 ML VIAL.NEB NEB SCH ×7 (03:30→23:29)
[2016-05-03] MEDS: PANTOPRAZOLE 40 MG TABLET.DR PO SCH ×2 (06:41→09:20)
[2016-05-03 07:58] LABS: ALBUMIN 1.5 g/dL (3.4-5.0); BILIRUBIN,TOTAL 1.6 mg/dL (0.2-1.0); CALCIUM, SERUM 7.8 mg/dL (8.5-10.1); CREATININE 0.8 mg/dL (0.6-1.3); POTASSIUM 3.1 mmol/L (3.5-5.1); TOTAL PROTEIN, SERUM 5.3 g/dL (6.4-8.2)
[2016-05-03 08:00] VITALS: BP 106/52
[2016-05-03] MEDS: LACTULOSE 10 G/15 ML UDC (PYXIS) PO SCH (09:19)
[2016-05-03] MEDS: LACTOBACILLUS RHAMNOSUS GG 1 EACH CAP.SPRINK PO SCH ×2 (09:20→16:00)
[2016-05-03] MEDS: GUAIFENESIN/CODEINE 10 ML UDC PO PRN (09:20)
[2016-05-03] MEDS: DOCUSATE SODIUM 100 MG CAPSULE PO SCH ×2 (09:20→16:00)
[2016-05-03] MEDS: BOOST PLUS FOOD-CHOCLATE 237 ML BOX PO SCH ×3 (09:21→16:00)
[2016-05-03] MEDS: FERROUS SULFATE (325 MG) 325 MG/TAB TABLET PO SCH ×2 (09:21→16:00)
[2016-05-03] MEDS: ONDANSETRON HCL/PF 4 MG/2 ML VIAL IVP PRN ×2 (10:02→16:37)
[2016-05-03] MEDS: IV NS 0.9% 1,000 ML IV PRN ×2 (10:02→22:17)
[2016-05-03] MEDS ORDERED: SECONDARY IV SET 1 EA INFUS.SET MC ONE ×3 (10:51→14:14)
[2016-05-03] MEDS: POTASSIUM CL. PREMIX PERIPHER. 50 ML IV SCH ×4 (10:55→13:40)
[2016-05-03] MEDS: ALBUMIN 25% 25 GM in PREMIX 1 EA IV SCH ×2 (11:01→21:39)
[2016-05-03] MEDS: SOD FERRIC GLUC 125 MG in IV NS 0.9% 100 ML IV SCH (14:34)
[2016-05-03 16:00] VITALS: BP 125/64
[2016-05-03] MEDS: CEFEPIME 1 GM in IV D5W 50 ML IV SCH (16:00)
[2016-05-03 20:00] VITALS: BP 129/63
[2016-05-03 20:10] VITALS: BP 129/93
[2016-05-03] MEDS: ENOXAPARIN SODIUM 60 MG/0.6 ML DISP.SYRIN SQ SCH (21:03)
[2016-05-03] MEDS ORDERED: IV SET PRIMARY 1 EA INFUS.SET MC ONE ×2 (21:42→22:11)
[2016-05-03] MEDS: IPRATROPIUM NEB FS 0.5 MG/2.5 ML AMPUL.NEB NEB PRN (23:29)
[2016-05-03] MEDS: ZOLPIDEM TARTRATE 5 MG TABLET PO PRN (23:34)
[2016-05-04] VITALS (15 sets, daily range): BP systolic 98–122; BP diastolic 39–74
[2016-05-04] MEDS: MORPHINE SULFATE INJ 2 MG/ML DISP.SYRIN IV PRN ×5 (01:08→19:54)
[2016-05-04] MEDS: ALBUTEROL FS 2.5 MG/0.5 ML VIAL.NEB NEB SCH ×6 (03:24→23:30)
[2016-05-04] MEDS: IPRATROPIUM NEB FS 0.5 MG/2.5 ML AMPUL.NEB NEB PRN ×3 (03:24→21:23)
[2016-05-04] MEDS: ONDANSETRON HCL/PF 4 MG/2 ML VIAL IVP PRN (05:42)
[2016-05-04 06:42] LABS: ALBUMIN 2.1 g/dL (3.4-5.0); CREATININE 0.7 mg/dL (0.6-1.3)
[2016-05-04 06:45] LABS: POTASSIUM 2.8 mmol/L (3.5-5.1)
[2016-05-04 06:47] LABS: BASOPHILS % (AUTO) 0.3 % (0.0-2.0); DIFF TOTAL % 100 %; EOSINOPHILS % (AUTO) 0.6 % (0.0-6.0); HEMATOCRIT 21 % (33-45); LYMPHOCYTES # (AUTO) 0.6 /CMM (0.8-4.8); LYMPHOCYTES % (AUTO) 12.9 % (20.0-44.0); MEAN CORPUSCULAR HEMOGLOBIN 26 PG (26.0-33.0); MEAN CORPUSCULAR HGB CONC 33 g/dl (31.0-36.0); MEAN CORPUSCULAR VOLUME 77 fL (82-100); MONOCYTES # (AUTO) 0.1 /CMM (0.1-1.30); MONOCYTES % (AUTO) 1.9 % (2.0-12.0); NEUTROPHILS # (AUTO) 3.8 /CMM (1.8-8.9); NEUTROPHILS % (AUTO) 84.3 % (43.0-81.0); RED BLOOD CELL COUNT(AUTO) 2.66 MIL/uL (4.0-5.2); WHITE BLOOD COUNT (AUTO) 4.6 K/uL (4.3-11.0)
[2016-05-04 07:01] LABS: HEMOGLOBIN 6.8 g/dL (11.5-14.8)
[2016-05-04 07:02] LABS: PLATELET COUNT (AUTO) 41 /CMM (150-450)
[2016-05-04 09:18] LABS: ANISOCYTOSIS 2+; EOSINOPHILS % (MANUAL) 1 % (0-4); LYMPHOCYTES % (MANUAL) 10 % (16-48); PLATELET ESTIMATE DECREASED
[2016-05-04 09:19] LABS: HYPOCHROMASIA 3+
[2016-05-04] MEDS ORDERED: Ondansetron Hcl/Pf SL (09:22)
[2016-05-04] MEDS ORDERED: PROC10TA29 PO (09:22)
[2016-05-04] MEDS: FERROUS SULFATE (325 MG) 325 MG/TAB TABLET PO SCH ×2 (09:34→17:28)
[2016-05-04] MEDS: LACTULOSE 10 G/15 ML UDC (PYXIS) PO SCH (09:35)
[2016-05-04] MEDS: LACTOBACILLUS RHAMNOSUS GG 1 EACH CAP.SPRINK PO SCH ×2 (09:35→17:28)
[2016-05-04] MEDS: DOCUSATE SODIUM 100 MG CAPSULE PO SCH ×2 (09:35→17:28)
[2016-05-04] MEDS: BOOST PLUS FOOD-CHOCLATE 237 ML BOX PO SCH ×3 (09:35→17:28)
[2016-05-04] MEDS ORDERED: ENOX60DI SQ (09:40)
[2016-05-04] MEDS ORDERED: IV NS 0.9% 250 ML IV ONE ×2 (10:11→18:07)
[2016-05-04] MEDS ORDERED: BLOOD IV SET 1 EA INFUS.SET MC ONE ×2 (10:11→18:07)
[2016-05-04] MEDS: HYDROCODONE/APAP 5/325MG 1 EACH TABLET PO PRN ×2 (12:24→22:08)
[2016-05-04] MEDS ORDERED: IV SET PRIMARY PUMP SET 1 EA INFUS.SET MC ONE (13:13)
[2016-05-04] MEDS: POTASSIUM CL. PREMIX PERIPHER. 50 ML IV SCH ×4 (13:20→21:33)
[2016-05-04] MEDS: IV NS 0.9% 1,000 ML IV PRN (13:20)
[2016-05-04] MEDS: SOD FERRIC GLUC 125 MG in IV NS 0.9% 100 ML IV SCH (14:57)
[2016-05-04] MEDS: CEFEPIME 1 GM in IV D5W 50 ML IV SCH (16:48)
[2016-05-04] MEDS: ENOXAPARIN SODIUM 60 MG/0.6 ML DISP.SYRIN SQ SCH (21:59)
[2016-05-04 22:12] LABS: BASOPHILS % (AUTO) 0.2 % (0.0-2.0); DIFF TOTAL % 100 %; HEMATOCRIT 28 % (33-45); HEMOGLOBIN 9.5 g/dL (11.5-14.8); LYMPHOCYTES # (AUTO) 0.6 /CMM (0.8-4.8); LYMPHOCYTES % (AUTO) 19.4 % (20.0-44.0); MEAN CORPUSCULAR HEMOGLOBIN 27 PG (26.0-33.0); MEAN CORPUSCULAR HGB CONC 34 g/dl (31.0-36.0); MEAN CORPUSCULAR VOLUME 80 fL (82-100); MONOCYTES # (AUTO) 0.1 /CMM (0.1-1.30); MONOCYTES % (AUTO) 3.2 % (2.0-12.0); NEUTROPHILS # (AUTO) 2.4 /CMM (1.8-8.9); NEUTROPHILS % (AUTO) 76.2 % (43.0-81.0); RED BLOOD CELL COUNT(AUTO) 3.53 MIL/uL (4.0-5.2); WHITE BLOOD COUNT (AUTO) 3.1 K/uL (4.3-11.0)
[2016-05-04 22:38] LABS: PLATELET COUNT (AUTO) 23 /CMM (150-450)
[2016-05-05] MEDS: MORPHINE SULFATE INJ 2 MG/ML DISP.SYRIN IV PRN ×2 (00:08→05:39)
[2016-05-05 01:47] LABS: EOSINOPHILS % (MANUAL) 1 % (0-4); LYMPHOCYTES % (MANUAL) 20 % (16-48); PLATELET ESTIMATE DECREASED
[2016-05-05] MEDS: HYDROCODONE/APAP 5/325MG 1 EACH TABLET PO PRN (02:56)
[2016-05-05] MEDS: IV NS 0.9% 1,000 ML IV PRN (02:58)
[2016-05-05] MEDS: GUAIFENESIN/CODEINE 10 ML UDC PO PRN (03:28)
[2016-05-05] MEDS: ALBUTEROL FS 2.5 MG/0.5 ML VIAL.NEB NEB SCH ×2 (03:30→07:26)
[2016-05-05] MEDS: PANTOPRAZOLE 40 MG TABLET.DR PO SCH (07:30)
[2016-05-05 08:00] VITALS: BP 146/85
[2016-05-05] MEDS ORDERED: MORPHINE SULFATE INJ 4 MG/ML DISP.SYRIN IV STA (08:31)
[2016-05-05 08:35] LABS: ABG BASE EXCESS -2.9 mmol/L; ABG PCO2 69.7 mmHg (35.0-45.0); ABG PO2 87.3 mmHg (75.0-100.0); ABG TOTAL HEMOGLOBIN 10.1 G/dL (12.0-16.0); ALLEN TEST Pass; AaDO2 409.9 mmHg; O2Hb 91.7 % (94.0-97.0)
[2016-05-05] MEDS: LACTULOSE 10 G/15 ML UDC (PYXIS) PO SCH (08:51)
[2016-05-05] MEDS: FERROUS SULFATE (325 MG) 325 MG/TAB TABLET PO SCH (08:51)
[2016-05-05] MEDS: DOCUSATE SODIUM 100 MG CAPSULE PO SCH (08:51)
[2016-05-05] MEDS: LACTOBACILLUS RHAMNOSUS GG 1 EACH CAP.SPRINK PO SCH (08:51)
[2016-05-05] MEDS: BOOST PLUS FOOD-CHOCLATE 237 ML BOX PO SCH (08:51)
[2016-05-05] MEDS ORDERED: LORAZEPAM INJ 2 MG/ML VIAL IV PRN (09:00)
[2016-05-05] MEDS ORDERED: MORPHINE SULFATE INJ 2 MG/ML DISP.SYRIN IV PRN (09:00)
[2016-05-05 09:22] LABS: BASOPHILS % (AUTO) 0.2 % (0.0-2.0); DIFF TOTAL % 100 %; EOSINOPHILS % (AUTO) 0.9 % (0.0-6.0); HEMATOCRIT 30 % (33-45); HEMOGLOBIN 9.8 g/dL (11.5-14.8); LYMPHOCYTES # (AUTO) 0.5 /CMM (0.8-4.8); LYMPHOCYTES % (AUTO) 17.6 % (20.0-44.0); MEAN CORPUSCULAR HEMOGLOBIN 27 PG (26.0-33.0); MEAN CORPUSCULAR HGB CONC 33 g/dl (31.0-36.0); MEAN CORPUSCULAR VOLUME 81 fL (82-100); MONOCYTES # (AUTO) 0.1 /CMM (0.1-1.30); MONOCYTES % (AUTO) 4.4 % (2.0-12.0); NEUTROPHILS # (AUTO) 2.2 /CMM (1.8-8.9); NEUTROPHILS % (AUTO) 76.9 % (43.0-81.0); RED BLOOD CELL COUNT(AUTO) 3.66 MIL/uL (4.0-5.2); WHITE BLOOD COUNT (AUTO) 2.9 K/uL (4.3-11.0)
[2016-05-05 09:28] LABS: PLATELET COUNT (AUTO) 23 /CMM (150-450)
[2016-05-05] MEDS ORDERED: PANTOPRAZOLE 40 MG VIAL IV SCH (09:30)
[2016-05-05 09:34] LABS: CALCIUM, SERUM 8.3 mg/dL (8.5-10.1); CREATININE 0.7 mg/dL (0.6-1.3); POTASSIUM 3.2 mmol/L (3.5-5.1)
[2016-05-05 10:07] LABS: ANISOCYTOSIS 1+; HYPOCHROMASIA 1+; LYMPHOCYTES % (MANUAL) 19 % (16-48); PLATELET ESTIMATE DECREASED
== END 2016-05-05 09:38 | disposition expired | DRG 720 ==
LOC: ER 13:34 → TELE 16:11 → MED 05-02 10:07 → ICU 05-05 08:23
PROVIDERS: ADMIT Internal Medicine; ATTEND Internal Medicine
PROC: 30233N1 Transfusion of Nonautologous Red Blood Cells into Peripheral Vein, Percutaneous Approach (ICD-10-PCS; principal; 2016-05-01)
DX: A41.9 Sepsis, unspecified organism (principal); J96.00 Acute respiratory failure, unspecified whether with hypoxia or hypercapnia; I26.99 Other pulmonary embolism without acute cor pulmonale; E43 Unspecified severe protein-calorie malnutrition; J90 Pleural effusion, not elsewhere classified; C79.70 Secondary malignant neoplasm of unspecified adrenal gland; D68.69 Other thrombophilia; E83.51 Hypocalcemia; E87.2 Acidosis; C34.90 Malignant neoplasm of unspecified part of unspecified bronchus or lung; E87.1 Hypo-osmolality and hyponatremia; J44.9 Chronic obstructive pulmonary disease, unspecified; D63.8 Anemia in other chronic diseases classified elsewhere; R00.1 Bradycardia, unspecified; E87.6 Hypokalemia; F17.210 Nicotine dependence, cigarettes, uncomplicated; Z86.718 Personal history of other venous thrombosis and embolism; D50.9 Iron deficiency anemia, unspecified; Z66 Do not resuscitate; N39.0 Urinary tract infection, site not specified; D75.89 Other specified diseases of blood and blood-forming organs; T45.1X5A Adverse effect of antineoplastic and immunosuppressive drugs, initial encounter; E86.1 Hypovolemia; K82.8 Other specified diseases of gallbladder; I82.412 Acute embolism and thrombosis of left femoral vein
CPT/HCPCS: 36415; 36600; 71010-TC; 76700-TC; 80048-TC; 80053-TC; 80076-TC; 81000-TC; 82040-TC; 82150-TC; 82803-TC; 83605-TC; 83690-TC; 83735-TC; 84100-TC; 84484-TC; 85025-TC; 85730-TC; 86022; 86850-TC; 86921-TC; 87040-TC; 87081-TC; 87086-TC; 87186-TC; 87400; 94660; 94799-TC; 97001-TC; 97116-TC; 97530-TC; 99082-TC; A4216; A4606; J0692; J1650; J2060; J2270; J2405; J2916; J3370; J3475; J3480; J3490; J7030; J7040; J7050; J7060; P9016-BL; P9047; Z7610